=== PATIENT | female | born 1990 | race Caucasian/White ===

== ENCOUNTER 2016-09-08 21:15 | Observation (INO) | payer OTHER ==
--- NOTE | ~2016-09-08 | CN ---
Consultation Report [facility] [address] [place]. [address] NAME: SIRIA ADLER : 88 STATUS : ADM Preethi PAT#: [id number] AGE: 26 ADM/REG DATE : 09/08/16 MR#: [id number] REPORT SERV DATE: 09/09/16 DICTATED BY: ANAYA LLANES DATE: 09/09/16 REPORT STATUS : Draft TRANSCRIBED BY: MODL DATE: 09/09/16 DATE OF CONSULTATION: 09/08/2016 REASON FOR CONSULTATION: Management and surgical clearance related to a type 1 insulin- dependent diabetes mellitus and long-term Coumadin use. HISTORY OF PRESENT ILLNESS: This is a pleasant alert and oriented 26-year-old, female, who was admitted today by Dr. Semaj Farooq for acute appendicitis. This patient will need surgical intervention by Dr. Farooq and he has asked that our service to manage her diabetes and anticoagulants prior to the procedure and during the course of her stay. [facility] of right lower quadrant abdominal pain that has been going on for about four days. The pain was worse after eating and associated with diarrhea at home. A CT scan of her abdomen and pelvis confirmed acute appendicitis. Her pain is currently somewhat relieved and she is not having any diarrhea but is experiencing some nausea. The patient was diagnosed as a type 1 diabetic at age 6 and has been on an insulin pump since high school. She checks her blood sugars every two to three hours and her ranges are typically 140s to 150s. 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 She has had labile blood sugars recently with a ranges today being from 57 that required taking glucose tablets two at 02:13 that required bolus insulin by pump. She has not seen her customer resource specialist in the past six months and does not recall her last hemoglobin A1c value but does note that it was drawn greater than six months ago. 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 The PE resolved spontaneously and she had two thrombectomies of her left lower extremity in 2013 and 2014 for the DVTs. She takes her Coumadin exactly as prescribed and follows with pivot maker, Dr. Damon. Because of the clots is unknown, her INR tonight is therapeutic for her chronic pain conditions at 2.7, but she will be receiving FFP in anticipation of surgery for the acute appendicitis. PAST MEDICAL HISTORY: Significant for: 1. Type 1 insulin-dependent diabetes mellitus, currently on insulin pump. 2. DVT x2. 3. PE. PAST SURGICAL HISTORY: Significant for: 1. Thrombectomy of left lower extremity x2, 2013 and 2014. PRIMARY CARE PHYSICIAN: The patient does not have a PCP, but follows regularly with her pivot maker, Dr. Damon. The patient also follows with customer resource specialist, Dr. Alvarez Alvarez. SOCIAL HISTORY: The patient is with a 91-cecso-tlu son and 8-year-old stepdaughter. She is a nonsmoker. She drinks alcohol socially, typically less than one drink a week. She Consultation Report [address] [address] NAME: SIRIA ADLER : 88 STATUS : ADM Preethi PAT#: [id number] AGE: 26 ADM/REG DATE : 09/08/16 MR#: [id number] REPORT SERV DATE: 09/09/16 DICTATED BY: ANAYA LLANES DATE: 09/09/16 REPORT STATUS : Draft TRANSCRIBED BY: ARTI DATE: 09/09/16 denies illicit drug use. She is an only child. FAMILY HISTORY: Mother has hypothyroidism and hypoglycemia. Father has factor V Leiden clotting disorder. Her maternal grandfather has "heart problems," that include bypass surgery, and also testicular cancer. Her maternal grandmother has no known medical history. Her paternal grandparents are both with cancer-related complications. ALLERGIES: PENICILLIN AND CODEINE. HOME MEDICATIONS: Include: 1. Insulin NovoLog pump. 2. Coumadin 12.5 mg p.o. every Saturday, , Saturday, and Saturday with her last dose on September 06. 3. Coumadin 10 mg p.o. every Saturday, Saturday, Saturday with the last dose on September 07. REVIEW OF SYSTEMS: A complete 10-point review of systems was negative except as per HPI. PHYSICAL EXAMINATION: VITAL SIGNS: T 97.3, P 111, RR 16, BP 139/85, SpO2 97% on room air. GENERAL: Well-appearing female, in no acute distress. NEUROLOGIC: Alert and oriented x3 without focal deficit. HEENT: PERRL. Normocephalic and atraumatic without lymphadenopathy. NECK: Supple. No JVD. LUNGS: CTA bilaterally. CV: Regular rate and rhythm. S1, S2 auscultated without murmur, rub, gallop or click. ABDOMEN: Soft and round. Tender to palpation in right lower quadrant. Bowel sounds are active in all quadrants. No masses. EXTREMITIES: No edema or cyanosis. Cap refill within normal limits. No calf tenderness. PSYCH: Normal affect. SKIN: Dry and intact with mucous membranes pink and moist. PERTINENT LABS: WBC 10.8, blood glucose on arrival to the ER 57, blood glucose on arrival to floor 213, blood glucose fingerstick at time of assessment 109. PT 28.5, PTT 39.8, INR 2.7. PERTINENT IMAGING: CT scan of the abdomen and pelvis confirmed acute appendicitis. "No periappendiceal abscess identified, although extensive previous appendiceal inflammatory changes." ASSESSMENT AND PLAN: 1. Type 1 diabetes mellitus/insulin-dependent diabetes mellitus-chronic and pump, labile blood glucose today ([phone]). We will stop her insulin pump while anticipating surgery and start her on sliding scale insulin level 1 along with long-acting insulin at low dose while in p.o. We will anticipate tight management of blood glucose for surgery. Consultation Report [address] [place]. [address] NAME: SIRIA ADLER : 88 STATUS : ADM Preethi PAT#: [id number] AGE: 26 ADM/REG DATE : 09/08/16 MR#: [id number] REPORT SERV DATE: 09/09/16 DICTATED BY: ANAYA LLANES DATE: 09/09/16 REPORT STATUS : Draft TRANSCRIBED BY: MODDariel DATE: 09/09/16 We will get an A1c with labs and monitor labs while she is in-house. We will ask for clinical educator to come in and speak with her as soon as possible and plan to restart her pump after surgery or upon discharge to resume her home regimen. 2. History of deep venous thrombosis, history of pulmonary embolism, which is chronic. Again, we will monitor her lab work in the process to reverse Coumadin. Has begun with FFP per the ER orders in anticipation of surgery. We are currently holding Coumadin. We will restart when appropriate and ask pharmacy to manage as well in anticipation of returning her to her home regimen on which she was therapeutic upon discharge. 3. Long-term Coumadin use. INR was therapeutic for chronic condition at 2.7 as mentioned above. Again, we will monitor her labs. Continue with FFP as per the ER orders in anticipation of surgery for the acute appendicitis and we will ask pharmacy to manage when it is appropriate to restart Coumadin to ensure she returns to therapeutic levels for her home regimen to manage her chronic conditions. 4. Acute appendicitis-acute condition, managed by Dr. Farooq. We will defer to the primary team anticipating surgical management at this time. Again, as mentioned before, we will attempt tight control of blood glucose and decreased INR and to facilitate best surgical management and outcomes for the acute appendicitis. Thank you for this consult. We are pleased to follow this patient with you. This consult was completed through thorough review of [employer], old records, [employer], and current chart as well as thorough interview with the patient. IVELISSE/ARTI Anaya Llanes NP / [id number] CC: Josh Farooq MD
--- NOTE | ~2016-09-08 | OP ---
Record Of Operation [facility] [address] [place]. [address] NAME: SIRIA ADLER : 88 STATUS : ADM Preethi PAT#: [id number] AGE: 26 ADM/REG DATE : 09/08/16 MR#: [id number] REPORT SERV DATE: 09/09/16 DICTATED BY: JUNIOR FAROOQ DATE: 09/09/16 REPORT STATUS : Draft TRANSCRIBED BY: MODL DATE: 09/09/16 DATE OF PROCEDURE: 09/09/2016 RESIDENT: Keyshawn Driscoll MD PREOPERATIVE DIAGNOSIS: Acute appendicitis. POSTOPERATIVE DIAGNOSIS: Acute appendicitis. NAME OF OPERATION: Laparoscopic appendectomy. SPECIMEN: Appendix. IV FLUIDS: 600 of crystalloid. ANESTHESIA: General and local. DRAINS: None. BRIEF HISTORY: This is a 26-year-old female with an unknown hypercoagulable disorder with history of DVT and PE, on Coumadin, presented with acute appendicitis. After reversing the patient's INR from 2.7, her preoperative INR was 2.0 prior to 2 units of FFP being infused. After risks and benefits of lap appendectomy, possible open, were described in detail to the patient including the standard complications as well as the extra complications of postoperative bleeding and postoperative DVT, PE because of her prior history, the patient agreed to proceed with surgery. On day of surgery, consent was signed. She was then brought to the operating room and placed in supine position. DESCRIPTION OF PROCEDURE: After induction of general anesthesia, her abdomen was prepped and draped in standard fashion using Hibiclens and ChloraPrep. A time-out was performed, which was correct. We turned our attention to the umbilicus. We made a transumbilical midline incision with a scalpel. We entered the abdomen with a Holly clamp and a SA protractor. We then placed a 12 mm trocar into the abdomen and insufflated the abdomen to 15 mmHg without incident. Two additional trocars were inserted in the inferior midline and 5 mm trocar. This was done without bleeding from anterior abdominal wall. We then localized the appendix. We mobilized the cecum slightly. Care was taken to achieve hemostasis because of the patient's INR. We then made a window in the mesentery at the base of the appendix and we then transected the appendix at the cecum with a laparoscopic stapler with a blue tissue load. We then took the mesentery with a white vascular load x2. We inspected the staple lines. There was no bleeding. We then placed the appendix in a bag. We suctioned the serosanguineous fluid from the patient's pelvis and right upper quadrant. There was no purulence. We then removed our accessory trocars. We carefully inspected the abdominal wall, there was no bleeding. We then removed the appendix through the umbilical trocar and Record Of Operation [address] [place]. [address] NAME: SIRIA ADLER : 88 STATUS : ADM Preethi PAT#: [id number] AGE: 26 ADM/REG DATE : 09/08/16 MR#: [id number] REPORT SERV DATE: 09/09/16 DICTATED BY: JUNIOR FAROOQ DATE: 09/09/16 REPORT STATUS : Draft TRANSCRIBED BY: ARTI DATE: 09/09/16 a bag. We desufflated the abdomen with a pool sucker and closed the fascia with a 0 Vicryl in a [id number] fashion. We irrigated subcutaneous tissue and closed the skin with interrupted 4-0 Monocryl sutures. The patient tolerated the procedure well. There were no complications. All sponge and needle counts were correct. Dr. Farooq was present throughout. DICTATED BY: MD ROBIN Lopez/ARTI Junior Farooq MD / [id number] CC: Junior Farooq MD
[2016-09-08 19:47] LABS: BASOPHILS 0.2 %; BASOPHILS ABSOLUTE 0.02 10/3/uL (0.0-0.16); EOSINOPHILS 2.2 %; EOSINOPHILS ABSOLUTE 0.24 10/3/uL (0.0-0.53); ER CBC TAT 0 Hrs 07 Mins; HEMATOCRIT 41.8 % (36.0-48.0); HEMOGLOBIN 14.2 g/dL (12.0-16.0); IMMATURE GRANULOCYTES 0.2 %; IMMATURE GRANULOCYTES ABSOLUTE 0.02 10/3/uL (0.0-0.11); LYMPHOCYTES 20.3 %; LYMPHOCYTES ABSOLUTE 2.19 10/3/uL (0.67-4.30); MEAN CORPUSCULAR HEMOGLOB 29.7 pg (26.0-34.0); MEAN CORPUSCULAR VOLUME 87.4 fL (80-100); MEAN PLATELET VOLUME 10.8 fL (9.2-13.0); MONOCYTES ABSOLUTE 0.54 10/3/uL (0.21-1.20); NEUTROPHILS 72.1 %; NEUTROPHILS ABSOLUTE 7.76 10/3/uL (2.02-8.40); PLATELET COUNT 196 10/3/uL (150-400); RBC DISTRIBUTION WIDTH 12.9 % (12.0-16.0); RED CELL COUNT 4.78 10/6/uL (4.0-5.6); WHITE BLOOD CELLS 10.8 10/3/uL (4.5-10.5)
[2016-09-08 19:50] LABS: ASCORBIC ACID (UR NOT ORDER) NEG (NEG); BILIRUBIN, URINE NEGATIVE (NEG); ER URINALYSIS TAT 0 Hrs 10 Mins; KETONE, URINE NEGATIVE (NEG); LEUKOCYTE ESTERASE(NOT OR NEG (NEG); NITRITE (URINE) NEG (NEG); WBC (NOT ORDERED) (RFLEX) < 1 (0-5)
[2016-09-08 19:55] LABS: MANUAL DIFF NO %
[2016-09-08 20:03] LABS: A/G RATIO 0.9 (0.7-1.9); ALBUMIN 3.7 G/DL (3.5-5.0); ALKALINE PHOSPHATASE 103 U/L (45-117); BUN (BLOOD UREA NITROGEN) 4 MG/DL (6-23); CALCIUM, SERUM 9.1 MG/DL (8.5-10.4); CHLORIDE, SERUM 105 MMOL/L (96-112); CO2 (CARBON DIOXIDE) 29 MMOL/L (24-34); CREATININE 0.64 MG/DL (0.55-1.02); GFR AFRICAN AMERICAN 142 ML/MIN (>=60); GFR NON AFRICAN AMERICAN 122 ML/MIN (>=60); GLOBULIN 4.1 G/DL (2.5-4.1); GLUCOSE, SERUM 57 MG/DL (60-99); POTASSIUM, SERUM 3.9 MMOL/L (3.5-5.3); SGOT(AST) 14 U/L (5-40); SGPT(ALT) 17 U/L (5-65); SODIUM, SERUM 142 MMOL/L (135-148); TOTAL BILIRUBIN 0.3 MG/DL (0-1.2); TOTAL PROTEIN 7.8 G/DL (6.0-8.5)
[2016-09-08 21:46] LABS: INTERNATIONAL NORMAL RATI 2.7 UNITS (-); PARTIAL THROMBO TIME 39.8 SEC (22.5-37.2); PROTIME (NOT ORD) 28.5 SEC (12.0-14.5)
[2016-09-08] MEDS ORDERED: NOVLOGPUMP (22:39)
[2016-09-08] MEDS ORDERED: COUMADIN10 MG PO (22:41)
[2016-09-08] MEDS ORDERED: C1 PO (22:42)
[2016-09-09 06:39] LABS: BASOPHILS 0.4 %; BASOPHILS ABSOLUTE 0.02 10/3/uL (0.0-0.16); EOSINOPHILS 2.8 %; EOSINOPHILS ABSOLUTE 0.15 10/3/uL (0.0-0.53); HEMOGLOBIN 11.6 g/dL (12.0-16.0); IMMATURE GRANULOCYTES 0.2 %; IMMATURE GRANULOCYTES ABSOLUTE 0.01 10/3/uL (0.0-0.11); LYMPHOCYTES 28.2 %; LYMPHOCYTES ABSOLUTE 1.51 10/3/uL (0.67-4.30); MEAN CORPUS HGB CONC 33.7 g/dL (32.0-36.0); MEAN CORPUSCULAR HEMOGLOB 29.7 pg (26.0-34.0); MEAN CORPUSCULAR VOLUME 88.2 fL (80-100); MEAN PLATELET VOLUME 11.1 fL (9.2-13.0); MONOCYTES 7.6 %; MONOCYTES ABSOLUTE 0.41 10/3/uL (0.21-1.20); NEUTROPHILS 60.8 %; NEUTROPHILS ABSOLUTE 3.26 10/3/uL (2.02-8.40); PLATELET COUNT 142 10/3/uL (150-400); RBC DISTRIBUTION WIDTH 13.1 % (12.0-16.0)
[2016-09-09 06:41] LABS: HEMATOCRIT 34.4 % (36.0-48.0); WHITE BLOOD CELLS 5.4 10/3/uL (4.5-10.5)
[2016-09-09 06:42] LABS: MANUAL DIFF NO %
[2016-09-09 06:47] LABS: PARTIAL THROMBO TIME 40.9 SEC (22.5-37.2)
[2016-09-09 06:51] LABS: BUN (BLOOD UREA NITROGEN) 3 MG/DL (6-23); CALCIUM, SERUM 8.2 MG/DL (8.5-10.4); CHLORIDE, SERUM 105 MMOL/L (96-112); CO2 (CARBON DIOXIDE) 26 MMOL/L (24-34); CREATININE 0.69 MG/DL (0.55-1.02); GFR AFRICAN AMERICAN 138 ML/MIN (>=60); GFR NON AFRICAN AMERICAN 119 ML/MIN (>=60); GLUCOSE, SERUM 250 MG/DL (60-99); POTASSIUM, SERUM 4.3 MMOL/L (3.5-5.3); SODIUM, SERUM 140 MMOL/L (135-148)
[2016-09-09 06:53] LABS: PROTIME (NOT ORD) 22.7 SEC (12.0-14.5)
[2016-09-09 10:23] LABS: INTERNATIONAL NORMAL RATI 1.7 UNITS (-); PROTIME (NOT ORD) 19.8 SEC (12.0-14.5)
[2016-09-09 10:24] LABS: PARTIAL THROMBO TIME 37.8 SEC (22.5-37.2)
[2016-09-10 05:27] LABS: BASOPHILS 0.2 %; BASOPHILS ABSOLUTE 0.01 10/3/uL (0.0-0.16); EOSINOPHILS 3.3 %; EOSINOPHILS ABSOLUTE 0.17 10/3/uL (0.0-0.53); HEMATOCRIT 34.2 % (36.0-48.0); HEMOGLOBIN 11.6 g/dL (12.0-16.0); IMMATURE GRANULOCYTES 0.2 %; IMMATURE GRANULOCYTES ABSOLUTE 0.01 10/3/uL (0.0-0.11); LYMPHOCYTES 33.9 %; LYMPHOCYTES ABSOLUTE 1.74 10/3/uL (0.67-4.30); MEAN CORPUS HGB CONC 33.9 g/dL (32.0-36.0); MEAN CORPUSCULAR HEMOGLOB 30.2 pg (26.0-34.0); MEAN CORPUSCULAR VOLUME 89.1 fL (80-100); MEAN PLATELET VOLUME 11.3 fL (9.2-13.0); MONOCYTES 8.6 %; MONOCYTES ABSOLUTE 0.44 10/3/uL (0.21-1.20); NEUTROPHILS 53.8 %; NEUTROPHILS ABSOLUTE 2.77 10/3/uL (2.02-8.40); PLATELET COUNT 136 10/3/uL (150-400); RED CELL COUNT 3.84 10/6/uL (4.0-5.6); WHITE BLOOD CELLS 5.1 10/3/uL (4.5-10.5)
[2016-09-10 05:29] LABS: MANUAL DIFF NO %
[2016-09-10 05:31] LABS: PROTIME (NOT ORD) 22.7 SEC (12.0-14.5)
[2016-09-10 05:41] LABS: BUN (BLOOD UREA NITROGEN) 3 MG/DL (6-23); CALCIUM, SERUM 8.2 MG/DL (8.5-10.4); CHLORIDE, SERUM 110 MMOL/L (96-112); CO2 (CARBON DIOXIDE) 23 MMOL/L (24-34); CREATININE 0.51 MG/DL (0.55-1.02); GFR AFRICAN AMERICAN 153 ML/MIN (>=60); GFR NON AFRICAN AMERICAN 132 ML/MIN (>=60); SODIUM, SERUM 143 MMOL/L (135-148)
[2016-09-10 05:43] LABS: GLUCOSE, SERUM 120 MG/DL (60-99)
[2016-09-10 07:14] LABS: PARTIAL THROMBO TIME > 150.0 SEC (22.5-37.2)
[2016-09-10] MEDS ORDERED: PCET PO (15:21)
[2016-09-10] MEDS ORDERED: PR25 PO (15:21)
== END 2016-09-10 16:05 | disposition home or self-care (01) ==
LOC: ER 21:15 → 4EA 22:45
PROVIDERS: Emergency Medicine; Nurse Practitioner; Surgery
PROC: 0DTJ4ZZ Resection of Appendix, Percutaneous Endoscopic Approach (ICD-10-PCS; principal; 2016-09-09 11:15)
DX: K35.3 Acute appendicitis with localized peritonitis (principal); E10.9 Type 1 diabetes mellitus without complications; Z79.01 Long term (current) use of anticoagulants; Z98.890 Other specified postprocedural states; Z88.0 Allergy status to penicillin; Z88.5 Allergy status to narcotic agent
CPT/HCPCS: 36415; 36430; 74176; 80048; 80053; 81001; 82962; 83036; 83690; 84703; 85025; 85610; 85730; 86900; 86901; 88304; 96372; 96374; 96375; 96376; 99285; A9270-GY; G0378; J0694; J1170; J1956; J2175; J2250; J2270; J2405; J2543; J2550; J2710; J2765; J3010; J3430; P9059

== ENCOUNTER 2017-05-07 08:16 | Emergency (ER) | payer SELFPAY ==
[~2017-05-07 08:16] MED LIST: C1 PO; COUMADIN10 MG PO; NOVLOGPUMP; PCET PO; PR25 PO
[2017-05-07 10:00] LABS: BASOPHILS 0.4 %; BASOPHILS ABSOLUTE 0.02 10/3/uL (0.0-0.16); EOSINOPHILS 1.1 %; EOSINOPHILS ABSOLUTE 0.05 10/3/uL (0.0-0.53); ER CBC TAT 0 Hrs 05 Mins; HEMOGLOBIN 13.3 g/dL (12.0-16.0); IMMATURE GRANULOCYTES 0.2 %; IMMATURE GRANULOCYTES ABSOLUTE 0.01 10/3/uL (0.0-0.11); LYMPHOCYTES 28.4 %; LYMPHOCYTES ABSOLUTE 1.33 10/3/uL (0.67-4.30); MEAN CORPUSCULAR HEMOGLOB 30.4 pg (26.0-34.0); MEAN CORPUSCULAR VOLUME 89.5 fL (80-100); MEAN PLATELET VOLUME 10.9 fL (9.2-13.0); MONOCYTES ABSOLUTE 0.28 10/3/uL (0.21-1.20); NEUTROPHILS 63.9 %; RBC DISTRIBUTION WIDTH 12.9 % (12.0-16.0); RED CELL COUNT 4.37 10/6/uL (4.0-5.6); WHITE BLOOD CELLS 4.7 10/3/uL (4.5-10.5)
[2017-05-07 10:05] LABS: HEMATOCRIT 39.1 % (36.0-48.0); MANUAL DIFF NO %; PLATELET COUNT 186 10/3/uL (150-400)
[2017-05-07 10:08] LABS: INTERNATIONAL NORMAL RATI 1.1 UNITS (-); PARTIAL THROMBO TIME 28.7 SEC (22.5-37.2)
[2017-05-07 10:09] LABS: PROTIME (NOT ORD) 13.6 SEC (12.0-14.5)
[2017-05-07 10:17] LABS: BUN (BLOOD UREA NITROGEN) 5 MG/DL (6-23); CHEST PAIN PROFILE TAT 0 Hrs 22 Mins; CHLORIDE, SERUM 105 MMOL/L (96-112); CREATININE 0.66 MG/DL (0.55-1.02); GFR AFRICAN AMERICAN 140 ML/MIN (>=60); GFR NON AFRICAN AMERICAN 121 ML/MIN (>=60); POTASSIUM, SERUM 4.5 MMOL/L (3.5-5.3); SODIUM, SERUM 139 MMOL/L (135-148); TROPONIN I <0.02 NG/ML (<0.05)
[2017-05-07 10:18] LABS: CALCIUM, SERUM 9.3 MG/DL (8.5-10.4); CO2 (CARBON DIOXIDE) 29 MMOL/L (24-34); GLUCOSE, SERUM 192 MG/DL (60-99)
== END 2017-05-07 13:40 | disposition home or self-care (01) ==
LOC: ER 08:16
PROVIDERS: Nurse Practitioner Family
DX: R07.89 Other chest pain (principal); Z87.891 Personal history of nicotine dependence; J45.909 Unspecified asthma, uncomplicated; F32.9 Major depressive disorder, single episode, unspecified; F41.9 Anxiety disorder, unspecified; E10.9 Type 1 diabetes mellitus without complications; Z86.711 Personal history of pulmonary embolism; Z86.718 Personal history of other venous thrombosis and embolism; Z88.0 Allergy status to penicillin; Z88.5 Allergy status to narcotic agent; Z79.899 Other long term (current) drug therapy; Z79.01 Long term (current) use of anticoagulants
CPT/HCPCS: 71010; 71275; 80048; 83735; 84484; 85025; 85610; 85730; 93005; 96374; 99285; J2405; Q9967